=== PATIENT | female | born 1965 | race Two or more races ===

== ENCOUNTER → 2022-09-30 | Day surgery (SDC) | payer MEDICAID ==
[2022-09-29 11:02] LABS: Basophils # (auto) 0.1 10 ^3/uL (0-0.2); Basophils % (auto) 1.2 % (0.0-2.0); Eosinophils # (auto) 0.3 10 ^3/uL (0-0.8); Eosinophils % (auto) 3.4 % (0.0-7.0); Hemoglobin 13.5 g/dL (12.2-16.2); Lymphocytes # (auto) 3.1 10 ^3/uL (0.4-5.4); Lymphocytes % (auto) 31.5 % (10.0-50.0); Mean Corpuscular Hemoglobin 28.6 pg (28.0-32.0); Mean Corpuscular Volume 86.6 fL (80.0-100.0); Monocytes # (auto) 0.5 10 ^3/uL (0-1.3); Monocytes % (auto) 5.4 % (0.0-12.0); Neutrophils # (auto) 5.8 10 ^3/uL (1.6-8.6); Neutrophils % (auto) 58.5 % (37.0-80.0); Nucleated Red Blood Cells % 0.1 %; Red Blood Cells 4.74 10^6/uL (4.0-5.20); Red Cell Distribution Width 13.8 % (11.8-14.3); White Blood Cell 9.8 10^3/uL (4.4-10.8)
[2022-09-29 11:19] LABS: INR 0.97 (0.9-1.15); Partial Thromboplastin Time 26.5 sec (24.6-33.4)
[2022-09-29 11:59] LABS: Potassium 3.8 mmol/L (3.5-5.1)
[2022-09-29 12:24] LABS: Albumin 3.8 g/dL (3.4-5.0); Bilirubin, Total 0.3 mg/dL (0.2-1.0); Calcium 8.6 mg/dL (8.5-10.1); Total Protein 8.5 g/dL (6.4-8.2)
[~2022-09-30] VITALS: Ht 170.2 cm; Wt 83.9 kg
[~2022-09-30] MED LIST: HYDR25TA5 PO; LIDOCAINE VISCOUS 2% 15ML UD ONE; LOSA-69 PO
[2022-09-30] MEDS: fentaNYL CITRATE 100 MCG/2 ML VL ONE ×3 (15:29→15:35)
[2022-09-30] MEDS: MIDAZOLAM HCL 2MG/2ML 2ml VIAL (1mg/ml) ONE ×3 (15:29→15:35)
[2022-09-30] MEDS: diphenhdrAMINE HCL 50 MG/1 ML VL ONE ×2 (15:29→15:32)
[2022-09-30 16:00] VITALS: BP 116/65
== END | disposition home or self-care (01) ==
LOC: GI 13:36
PROVIDERS: ATTEND Internal Medicine Gastroenterology
DX: R10.12 Left upper quadrant pain (principal); K29.70 Gastritis, unspecified, without bleeding; K44.9 Diaphragmatic hernia without obstruction or gangrene; Z20.822 Contact with and (suspected) exposure to COVID-19
CPT/HCPCS: 36415; 43239; 80053; 85025; 85610; 85730; 88305; 88342; J1200; J2250; J3010; J7030; U0003